=== PATIENT | female | born 1985 | race Caucasian/White ===

== ENCOUNTER 2016-08-07 22:40 | Emergency (ER) | payer BC ==
[~2016-08-07] VITALS: Ht 170.2 cm; Wt 64.6 kg
[~2016-08-07 22:40] MED LIST: AUGMENTIN875TAB OR; BUSPAR10 MG PO; BUSPAR15 MG PO; CHERATUSSIN OR; CIPROFLOXACN500 MG PO; METRONIDAZOL500 MG PO; MULTI FOR HER PO; NAPROSYN500 MG PO; ORTHO EVRA TD; PAXIL30 MG PO; SPRINTEC 2828 DAY OR; SPRINTEC 2828 DAY PO; TAM75CAP PO; TET/DIP TOX1 ML IM; TUSSICAPS OR; ZOFRAN ODT4 MG PO; ZPAK PO
[2016-08-08 01:34] LABS: HEMATOCRIT 39.4 % (37.0-47.0); HEMOGLOBIN 13.5 g/dl (12.0-16.0); IMMATURE GRANULOCYTES 0.3 % (0.0-1.0); MEAN CELL VOLUME 90.8 fL CALC (80.0-100.0); MEAN CORPUSCULAR HGB 31.1 pG CALC (26.0-32.0); MEAN CORPUSCULAR HGB CONC 34.3 g/L CALC (32.0-36.0); NEUT# 9.45 thou/uL (2.00-7.15); RED BLOOD COUNT 4.34 mill/uL (4.20-5.60); RED CELL DISTRI WIDTH 13.4 % (11.5-15.5)
[2016-08-08 01:56] LABS: ALBUMIN 4.6 g/dL (3.2-5.0); ALKALINE PHOSPHATASE 42 u/l (38-126); ANION GAP 15 (6-22 (CALC)); BILIRUBIN, TOTAL 0.4 mg/dL (0.0-1.4); BUN 10 mg/dL (7-17); BUN/CREATININE RATIO 12 (12-20 (CALC)); CALCIUM 9.3 mg/dL (8.4-10.2); CARBON DIOXIDE 26 mmol/l (22-30); CHLORIDE 104 mmol/l (95-108); CREATININE 0.8 mg/dL (0.5-1.0); GFR > 60 ML/MIN (>=60 (CALC)); GFR FOR AFR.AMER. > 60 ML/MIN (>=60 (CALC)); GLUCOSE 94 mg/dL (65-105); POTASSIUM 3.7 mmol/l (3.5-5.1); SGOT/AST 21 u/l (14-36); SGPT/ALT 31 u/l (9-52); SODIUM 141 mmol/l (137-146); TOTAL PROTEIN 7.2 g/dL (6.3-8.2)
[2016-08-08 02:00] VITALS: BP 122/69
== END 2016-08-08 02:20 | DRG 999 ==
LOC: ED 22:40
PROVIDERS: Emergency Medicine
DX: S02.40CA Maxillary fracture, right side, initial encounter for closed fracture (principal); S02.81XA Fracture of other specified skull and facial bones, right side, initial encounter for closed fracture; F32.9 Major depressive disorder, single episode, unspecified; S02.40AA Malar fracture, right side, initial encounter for closed fracture; F17.210 Nicotine dependence, cigarettes, uncomplicated; F41.9 Anxiety disorder, unspecified; W21.07XA Struck by softball, initial encounter; Y93.64 Activity, baseball; Y92.328 Other athletic field as the place of occurrence of the external cause

== ENCOUNTER 2018-10-11 18:19 | Emergency (ER) | payer SELFPAY ==
[~2018-10-11] VITALS: Ht 170.2 cm; Wt 66.0 kg
[2018-10-11] MEDS ORDERED: IBUPROFEN600 MG PO (20:07)
[2018-10-11 20:54] VITALS: BP 121/70
== END 2018-10-11 22:30 | disposition home or self-care (01) | DRG 605 ==
LOC: ED 18:19
DX: S40.012A Contusion of left shoulder, initial encounter (principal); F17.210 Nicotine dependence, cigarettes, uncomplicated; V80.010A Animal-rider injured by fall from or being thrown from horse in noncollision accident, initial encounter; Y93.52 Activity, horseback riding; Y92.009 Unspecified place in unspecified non-institutional (private) residence as the place of occurrence of the external cause

== ENCOUNTER 2022-01-04 08:12 | Emergency (ER) | payer BC ==
[~2022-01-04] VITALS: Ht 170.2 cm; Wt 61.8 kg
[2022-01-04] VITALS (7 sets, daily range): BP systolic 98–122; BP diastolic 60–91
[~2022-01-04 08:12] MED LIST changes: +IBUPROFEN600 MG PO
[2022-01-04] MEDS ORDERED: LEXAPRO10 MG PO (08:43)
[2022-01-04] MEDS ORDERED: ADDERALL10 MG PO (08:44)
== END 2022-01-04 10:21 | disposition home or self-care (01) | DRG 103 ==
LOC: ED 08:12
DX: R51.9 Headache, unspecified (principal)